=== PATIENT | male | born 1950 | race Caucasian/White ===

== ENCOUNTER → 2017-04-27 | Outpatient (CLI) | payer BC ==
--- NOTE | 2017-04-27 08:04 | US ---
EXAMINATION TYPE: US duplex aorta DATE OF EXAM: 04/27/2017 COMPARISON: US CLINICAL HISTORY: I71.4 Abdominal aortic aneurysm, without rupture. Pt has no complaints at this time , possible AAA EXAM MEASUREMENTS: Abdominal Aorta: Proximal: 2.6 x 2.4 cm Mid: 2.1 x 2.2 cm Distal: 1.9 x 2.0 cm Bifurcation: ALEXANDER: 1.3 x 1.2 cm HUGO: 1.3 x 1.0 cm No evidence of AAA, proximal portion at upper limits of normal for size IMPRESSION: 1. No abdominal aortic aneurysm.
== END | disposition home or self-care (01) ==
LOC: RADUSWWP 07:38
PROVIDERS: ATTEND Internal Medicine
DX: I71.4 Abdominal aortic aneurysm, without rupture (principal)
CPT/HCPCS: 93979

== ENCOUNTER 2018-04-12 10:16 | Day surgery (SDC) | payer MEDICARE, BC ==
[2018-04-09 17:25] VITALS: BMI 28.8
[~2018-04-12 10:16] MED LIST: LACTATED RINGERS 1,000 ML IV SCH; LIDOCAINE 1% 20 ML VIAL (10MG/ML) FOR IV START INTRADERMA PRN
[2018-04-12 11:14] VITALS: TEMP 97.9
[2018-04-12] MEDS ORDERED: LACTATED RINGERS 1,000 ML IV ONE (11:14)
[2018-04-12] MEDS ORDERED: PROPOFOL 10 MG/ML 20 ML VIAL IV ONE (13:07)
--- NOTE | 2018-04-12 13:25 | P.PCN ---
Date of Procedure: 04/12/18 Procedure(s) Performed: BRIEF HISTORY: Patient is a 67-year-old pleasant male, scheduled for an elective colonoscopy as a part of evaluation of prior history of colon polyps. Last colonoscopy was 5 years ago. PROCEDURE PERFORMED: Colonoscopy with snare polypectomy. PREOPERATIVE DIAGNOSIS: History of colon polyps. IV sedation per Anesthesia. PROCEDURE: After informed consent was obtained, the patient, was brought into the endoscopy unit. IV sedation was administered by Anesthesia under continuous monitoring. Digital rectal examination was normal. Initially the Olympus CF- 160 flexible video colonoscope was then inserted in the rectum, gradually advanced into the cecum without any difficulty. Careful examination was performed as the scope was gradually being withdrawn. Ileocecal valve and the appendiceal orifice were visualized and appeared normal. Prep was excellent. Mucosa of the cecum, appeared normal. In the ascending colon there was a 7-8 mm broad-based polyp removed by snare polypectomy. Rest of the ascending colon , transverse colon, descending colon, sigmoid colon, and rectum appeared normal. Left Sided Diverticulosis Seen. Retroflexion was performed in the rectum and no lesions were seen. The patient tolerated the procedure well. IMPRESSION: 7-8 mm ascending colon polyp status post polypectomy Scattered sigmoid diverticulosis RECOMMENDATIONS: Findings of this examination were discussed with the patient as well as his family. He was advised to follow with the biopsy results. If the biopsy shows a tubular adenoma he can have a repeat colonoscopy in 5 years..
[2018-04-12 13:49] VITALS: BP 141/77; PULSE 56; RESP 18
== END 2018-04-12 13:55 | disposition home or self-care (01) ==
LOC: ORWHC2ENDO 10:16
PROVIDERS: ATTEND Internal Medicine Gastroenterology
DX: Z12.11 Encounter for screening for malignant neoplasm of colon (principal); D12.2 Benign neoplasm of ascending colon; K57.30 Diverticulosis of large intestine without perforation or abscess without bleeding; Z86.010 Personal history of colon polyps; E78.5 Hyperlipidemia, unspecified; Z79.82 Long term (current) use of aspirin; Z79.899 Other long term (current) drug therapy; Z88.2 Allergy status to sulfonamides
CPT/HCPCS: 88305; 45385; J2704

== ENCOUNTER → 2019-08-26 | Outpatient (CLI) | payer MEDICARE, BC ==
--- NOTE | 2019-08-26 16:03 | US ---
EXAMINATION TYPE: US carotid duplex BILAT DATE OF EXAM: 08/26/2019 COMPARISON: NONE CLINICAL HISTORY: I65.23 Carotid stenosis. EXAM MEASUREMENTS: RIGHT: Peak Systolic Velocity (PSV) cm/sec ----- Right CCA: 78.5 ----- Right ICA: 81.6 ----- Right ECA: 116 ICA/CCA ratio: 1.03 RIGHT: End Diastole cm/sec ----- Right CCA: 20.6 ----- Right ICA: 29.5 ----- Right ECA: 13.4 LEFT: Peak Systolic Velocity (PSV) cm/sec ----- Left CCA: 77.8 ----- Left ICA: 99.4 ----- Left ECA: 108.0 ICA/CCA ratio: 1.28 LEFT: End Diastole cm/sec ----- Left CCA: 18.7 ----- Left ICA: 55.2 ----- Left ECA: 15.8 VERTEBRALS (direction of flow): Right Vertebral: Antegrade Left Vertebral: Antegrade Rhythm: Arrhythmia Mild plaque with no significant velocity increases. IMPRESSION: 1. Mild degree of grayscale atheromatous plaquing with no sonographically evident hemodynamically sig nificant stenosis within either visualized carotid arterial system. 2. Incidentally noted cardiac arrhythmia. Correlate with EKG. Criteria for Assigning % of Stenosis / Diameter reduction (Estimation based on the indirect measurements of the internal carotid artery velocities (ICA PSV). 1. Normal (no stenosis)=ICA PSV < 125 cm/s: ratio < 2.0: ICA EDV<40 cm/s. 2. Less than 50% stenosis=ICA PSV < 125 cm/s: ratio < 2.0: ICA EDV<40 cm/s. 3. 50 to 69% stenosis=ICA PSV of 125 to 230 cm/s: ration 2.0 ? 4.0: ICA EDV 40-100 cm/s. 4. Greater than 70% stenosis to near occlusion= ICA PSV > 230 cm/s: ratio > 4.0: ICA EDV > 100 cm/s. 5. Near occlusion= ICA PSV velocities may be low or undetectable: variable ratio and ICA EDV. 6. Total occlusion=unable to detect flow.
== END ==
LOC: RADUSWWP 15:19
PROVIDERS: ATTEND Internal Medicine
DX: I65.23 Occlusion and stenosis of bilateral carotid arteries (principal)
CPT/HCPCS: 93880

== ENCOUNTER → 2019-11-20 | Outpatient (CLI) | payer MEDICARE, BC ==
--- NOTE | 2019-11-20 09:27 | US ---
EXAMINATION TYPE: US abdomen complete DATE OF EXAM: 11/20/2019 COMPARISON: NONE CLINICAL HISTORY: D69.1 Qualitative platelet defects. Platelet defects. EXAM MEASUREMENTS: Liver Length: 13.7 cm Gallbladder Wall: .2 cm CBD: .3 cm Spleen: 9.3 cm Right Kidney: 10.9 x 5.5 x 4.7 cm Left Kidney: 12.3 x 5.2 x 4.3 cm Exam limitations due to body habitus and bowel gas. Pancreas: Obscured by bowel gas Liver: There is increased echogenicity of the hepatic parenchyma with diminished visualization of th e portal triads most commonly relating to hepatic steatosis and limiting evaluation for underlying he patic masses. Gallbladder: wnl Evidence for sonographic Anne's sign: No CBD: wnl Spleen: wnl Right Kidney: appears wnl Left Kidney: Mild hydronephrosis. Upper IVC: wnl Abd Aorta: wnl The intrahepatic portion of the IVC and proximal abdominal aorta are within normal limits. There is no evidence of cholelithiasis. Common bile duct is unremarkable. The visualized portions of the gomez creas are homogenous. The spleen is unremarkable. No renal lesions are seen. IMPRESSION: Exam is somewhat limited secondary to patient body habitus. 1. Mild left-sided hydronephrosis. CT urogram could assess for an obstructive etiology. 2. Sonographic findings most commonly related to hepatic steatosis. Correlate with liver function cici ts.
== END | disposition home or self-care (01) ==
LOC: RADUSWWP 08:16
PROVIDERS: ATTEND Internal Medicine
DX: N13.30 Unspecified hydronephrosis (principal); K76.0 Fatty (change of) liver, not elsewhere classified
CPT/HCPCS: 76700

== ENCOUNTER → 2019-11-27 | Outpatient (CLI) | payer MEDICARE, BC ==
[2019-11-27 14:50] LABS: African American GFR (CKD) >90 (>60 ml/min/1.73 sqM); Blood Urea Nitrogen 20 mg/dL (9-20); Non-African American GFR(CKD) 85 (>60 ml/min/1.73 sqM)
--- NOTE | 2019-11-28 11:45 | CT ---
EXAMINATION TYPE: CT urogram wo/w con DATE OF EXAM: 11/27/2019 COMPARISON: Correlation ultrasound 11/20/2019 HISTORY: 69-year-old male ABNORMAL US TECHNIQUE: Contiguous axial scanning of the abdomen and pelvis performed without and with IV Contrast , patient injected with 100 mL of Isovue 300. Delayed images through the kidneys and bladder were obt ained. Coronal/sagittal reconstructions performed. 3-D reconstructions generated on a dedicated iM[employer] workstation. CT DLP: 2021.2 mGycm Automated exposure control for dose reduction was used. FINDINGS: The heart is normal size without pericardial effusion. Some strandy atelectasis lower lungs. No pleur al effusion. No significant fatty infiltration of the liver given normal density and noncontrast series. Appearanc e on ultrasound seems to have been technical artifact. No focal liver lesion or biliary ductal dilata tion. Portal venous system is patent. Gallbladder, right adrenal gland, spleen and bilateral splenule, and pancreas appear within normal li mits. Mild thickening of the left adrenal gland without discrete nodularity. Kidneys show no nephrolithiasis. No ureteric dilatation. Bilateral parapelvic cysts are present, oliver uring up to 1.3 cm on the right and 2.3 cm on the left. No suspicious renal lesion. No abnormal filling defect within the renal collecting systems or along t he course of the ureters. No dilated small bowel, free fluid, or free air. Retroaortic left renal vein. Scattered nonenlarged and borderline size mesenteric lymph nodes measure up to 7 mm, likely reactive/ post inflammatory. Normal appendix. Mild stool burden. No pericolonic inflammatory change. Bladder is markedly urine distended measuring up to 16.9 cm. Prostate gland is bulky and enlarged oneil suring 5.5 cm wide by 5.3 cm craniocaudal with a bulging at the bladder base. The posterior third of the bladder is opacified on the delayed scan and shows no abnormal mural based filling defect. No abnormal fluid collection in the pelvis or pelvic lymphadenopathy. There seems to be varicoceles a long the inguinal regions and left hemiscrotum. Bones: Mild degenerative changes at the hips. Degenerative changes right SI joint. Moderate degenerat rena disc disease mid to lower lumbar spine with facet arthropathy. IMPRESSION: 1. NO HYDRONEPHROSIS. THERE ARE PARAPELVIC CYSTS IN BOTH KIDNEYS AND THIS FINDING ACCOUNTS FOR THE AP PEARANCE OF HYDRONEPHROSIS ON ULTRASOUND. 2. NO NEPHROLITHIASIS OR ABNORMAL FILLING DEFECT WITHIN THE URETERS OR RENAL COLLECTING SYSTEMS. 3. PROSTATOMEGALY AT 5.5 CM AND MARKED URINARY BLADDER DISTENTION UP TO 16.9 CM. CORRELATE FOR POSSIB LE BPH. PSA ASSESSMENT ALSO RECOMMENDED. 4. SUSPECT SCROTAL VARICOCELES.
== END | disposition home or self-care (01) ==
LOC: RADCTMAIN 14:07
PROVIDERS: ATTEND Internal Medicine
DX: N40.0 Benign prostatic hyperplasia without lower urinary tract symptoms (principal); N32.89 Other specified disorders of bladder; Q61.02 Congenital multiple renal cysts; N13.30 Unspecified hydronephrosis
CPT/HCPCS: 82565; 84520; 74178; 36415; 74400; Q9967

== ENCOUNTER → 2020-04-15 | Outpatient (CLI) | payer MEDICARE, BC ==
[2020-04-15 09:14] LABS: Basophils % (A) 0 %; Eosinophils % (A) 4 %; HCT 47.3 % (39.0-53.0); HGB 16.1 gm/dL (13.0-17.5); Lymphocytes % (A) 23 %; MCH 31.7 pg (25.0-35.0); MCHC 34.1 g/dL (31.0-37.0); MCV 93.2 fL (80.0-100.0); Monocytes % (A) 6 %; Neutrophils % (A) 65 %; Platelet Count 156 k/uL (150-450); RBC 5.07 m/uL (4.30-5.90); RDW 12.7 % (11.5-15.5)
[2020-04-15 09:15] LABS: Eosinophils # (A) 0.2 k/uL (0-0.7); Lymphocytes # (A) 1.4 k/uL (1.0-4.8); Monocytes # (A) 0.4 k/uL (0-1.0); Neutrophils # (A) 3.9 k/uL (1.3-7.7)
[2020-04-15 18:08] LABS: African American GFR (CKD) 99.9 (60.0-200.0); Albumin 3.9 g/dL (3.80-4.90); Albumin/Globulin Ratio 2.05 (1.60-3.17); Anion Gap 3.1 mmol/L (4.00-12.00); BUN/Creat Ratio 27.78 Ratio (12.00-20.00); Calcium 9.2 mg/dL (8.7-10.3); Carbon Dioxide 29.9 mmol/L (21.6-31.8); Chol/HDL Ratio 2.79; Globulin 1.9 g/dL (1.6-3.3); LDL Cholesterol,Calculated 67.6 mg/dL (0.0-131.0); Non-African American GFR(CKD) 86.2 (60.0-200.0); Potassium 4.5 mmol/L (3.5-5.5); Total Bilirubin 0.7 mg/dL (0.3-1.2); Total Protein 5.8 g/dL (6.2-8.2); VLDL Calculation 18.4 mg/dL (5.00-40.00)
== END | disposition home or self-care (01) ==
LOC: LABWHC1 07:53
PROVIDERS: ATTEND Internal Medicine
DX: Z00.00 Encounter for general adult medical examination without abnormal findings (principal); N40.0 Benign prostatic hyperplasia without lower urinary tract symptoms; E78.2 Mixed hyperlipidemia
CPT/HCPCS: 36415; 80053; 80061; 84153; 84443; 85025

== ENCOUNTER → 2022-10-20 | Outpatient (CLI) | payer MEDICARE, BC ==
--- NOTE | 2022-10-20 12:06 | NM ---
EXAMINATION TYPE: NM stress cardiolite complete DATE OF EXAM: 10/20/2022 COMPARISON: NONE HISTORY: TECHNIQUE: After the intravenous administration of 9.2 mCi Tc 99m Sestamibi - Rest images obtained 4 5 minutes post injection. The patient exercised using a LUIZA protocol and 1 minute prior to peak e xercise was injected with 25.3 mCi Tc 99m Sestamibi - Stress images obtained 10 minutes post injectio n. FINDINGS: Targeted heart rate was achieved during performance of the study. Review of stress and rest SPECT steffanie ges demonstrates no distinct perfusion abnormality. Gated analysis shows normal wall motion with an estimated left ventricular ejection fraction of 62 %. IMPRESSION: No scintigraphic evidence for reversible ischemia
--- NOTE | 2022-10-20 12:34 | CA ---
Exercise Stress Test Report Name: Rajendra Moss Exam Date: 10/20/2022 10:36 Exam Location: [place] [facility] Ht (in): 72 Wt (lb): 219 BSA: 2.21 Ordering Phys: Bennie Jesus MD Referring Phys: MEL, Technologist: Jacinto Villela Age: 71 Gender: M : 1950 Procedure CPT: Indications: I20.8 Angina ICD-10 Codes: Patient History: HTN, ELEVATED CHOLESTEROL LEVELS, FAMILY HX OF HEART DISEASE Medications: SIMVASTATIN,,,,,, LOSARTAN,,,,,, FINASTERIDE,,,,,, ASA,,,,, Meds past 24 hrs: Pretest Chest Pain: STRESS TEST Jer Protocol Exercise Duration (min:sec): 06:[address] Depressions (mm): Angina Score: Emerson Score: Resting HR (bpm): 68 Peak HR (bpm): 144 Resting BP (mmHg): 146 / 76 Peak BP (mmHg): 191 / 69 MPHR: 148 Target HR: 126 % MPHR: 97 METS: 7.9 Total Dose: Peak Dose: Atropine: Double Product: 28190 BP Response: Stress Termination: MAX EXERTION/TARGET HR Stress Symptoms: NO SYMPTOMS Stress Summary: ECG ANALYSIS Resting ECG: Stress ECG: CONCLUSIONS Baseline heart rate 89 beats a minute, Baseline blood pressure 158/90 mmHg Patient exercised on Jer protocol for 6 minutes 30 seconds Baseline. EKG showed normal sinus rhythm with normal ST segments No ECG evidence for ischemia No arrhythmias average exercise capacity Dr. Adán Macario MD (Electronically Signed) Final Date: 20 October 2022 12:34
== END | disposition home or self-care (01) ==
LOC: RADNMMAIN 08:56
PROVIDERS: ATTEND Internal Medicine
DX: I20.8 Other forms of angina pectoris (principal)
CPT/HCPCS: 93017; 78452; A9500

== ENCOUNTER 2024-10-30 12:02 | Day surgery (SDC) | payer MEDICARE, BC ==
[2024-10-30] MEDS ORDERED: LIDOCAINE 1% (10MG/ML) FOR IV START INTRADERMA PRN (12:15)
[2024-10-30] MEDS ORDERED: LACTATED RINGERS 1,000 ML IV SCH (12:15)
[2024-10-30] MEDS: IV FLUID CONTINUATION 1,000 ML IV ONE (12:45)
[2024-10-30 13:08] VITALS: RESP 16; TEMP 97.8
[2024-10-30] MEDS ORDERED: PROPOFOL 10 MG/ML 20 ML VIAL IV ONE (13:33)
[2024-10-30] MEDS ORDERED: LIDOCAINE 1% INJ 10MG/ML (20 ML MDV) ONE (13:33)
[2024-10-30 14:06] VITALS: BP 99/63; PULSE 62
--- NOTE | 2024-10-30 16:25 | P.OP ---
Date of Procedure: 10/30/24 Preoperative Diagnosis: Screening Colonoscopy Postoperative Diagnosis: Normal Colon Procedure(s) Performed: Colonoscopy Anesthesia: other (Sedation) Surgeon: Rafa Hooks Pathology: none sent Condition: stable Disposition: PACU Description of Procedure: After informed consent was obtained, the patient was placed in the left lateral position and the above medications were titrated with adequate sedation. Monitoring was provided throughout the entire procedure. Digital rectal exam was performed revealing normal sphincter tone and no external hemorrhoids. The colonoscope was inserted into rectum and advanced under direct visualization, without difficulty, to the cecum, where the cecal strap, appendiceal orifice, and the ileocecal valve were identified. The quality of the preparation was good. The colonoscope was then withdrawn while carefully examining the mucosa. The colonic mucosa appeared normal with normal vascularity and haustral markings. No masses, polyps, AVM/s or diverticula were seen. On retroflexed view in the rectum, there are small internal hemorrhoids. The endoscope was removed and the procedure terminated. The patient tolerated the procedure well without complications. The patient will need repeat colonoscopy in 10 years
== END 2024-10-30 14:28 | disposition home or self-care (01) ==
LOC: ORWHC2ENDO 12:02
PROVIDERS: ATTEND Surgery
DX: Z12.11 Encounter for screening for malignant neoplasm of colon (principal); I10 Essential (primary) hypertension; E78.5 Hyperlipidemia, unspecified; N40.0 Benign prostatic hyperplasia without lower urinary tract symptoms; F17.200 Nicotine dependence, unspecified, uncomplicated; Z88.2 Allergy status to sulfonamides; Z79.899 Other long term (current) drug therapy
CPT/HCPCS: J2003; J2704; G0121

== ENCOUNTER → 2025-04-27 | Outpatient (CLI) | payer MEDICARE, BC ==
--- NOTE | 2025-04-27 08:18 | US ---
EXAMINATION TYPE: US carotid duplex BILAT DATE OF EXAM: 04/27/2025 COMPARISON: 08/26/2019 CLINICAL INDICATION: Male, 74 years old with history of I65.23 Carotid stenosis; HTN; Patient denies any other signs, symptoms, or relevant history Additional History: .... TECHNIQUE: Grayscale, color Doppler and spectral Doppler evaluation of the bilateral carotid systems and vertebral arteries. Indirect Doppler criteria was utilized. FINDINGS: EXAM MEASUREMENTS: RIGHT: Peak Systolic Velocity (PSV) cm/sec ----- Right CCA: 73 ----- Right ICA: 85 ----- Right ECA: 123 ICA/CCA ratio: 1.2 RIGHT: End Diastole cm/sec ----- Right CCA: 17 ----- Right ICA: 25 ----- Right ECA: 15 LEFT: Peak Systolic Velocity (PSV) cm/sec ----- Left CCA: 80 ----- Left ICA: 99 ----- Left ECA: 122 ICA/CCA ratio: 1.2 LEFT: End Diastole cm/sec ----- Left CCA: 18 ----- Left ICA: 36 ----- Left ECA: 16 VERTEBRALS (direction of flow): Right Vertebral: Antegrade Left Vertebral: Antegrade Rhythm: Normal TRIMMING INSPECTOR NOTES: Calcified plaque seen right CCA extending into ICA, no elevated velocities seen, a nd intimal thickening noted at the left CCA bulb. Color Doppler imaging shows patency with blood flow throughout the carotid artery. Spectral waveforms are within normal limits. IMPRESSION: 1. Atheromatous plaquing without significant flow-limiting stenosis based on velocities. Criteria for Assigning % of Stenosis / Diameter reduction (Estimation based on the indirect measurements of the internal carotid artery velocities (ICA PSV). 1. Normal (no stenosis)=ICA PSV < 180 cm/s: ratio < 2.0: ICA EDV<40 cm/s. 2. Less than 50% stenosis=ICA PSV < 180 cm/s: ratio < 2.0: ICA EDV<40 cm/s. 3. 50 to 69% stenosis=ICA PSV of 180 to 230 cm/s: ration 2.0 ? 4.0: ICA EDV 40-100 cm/s. PSV 125-180 cm/sec and ICA/CCA PSV Ratio ? 2.0 is also consistent with 50-69% stenosis 4. Greater than 70% stenosis to near occlusion= ICA PSV > 230 cm/s: ratio > 4.0: ICA EDV > 100 cm/s. 5. Near occlusion= ICA PSV velocities may be low or undetectable: variable ratio and ICA EDV. 6. Total occlusion=unable to detect flow. [facility], , 04/27/2025 8:16 AM
--- NOTE | 2025-04-27 10:40 | CA ---
Transthoracic Echo Report Name: Rajendra Moss Age: 74 Gender: M : 1950 Exam Date: 04/27/2025 08:32 Exam Location: [place] [facility] Ht (in): 72 Wt (lb): 219 Ordering Physician: Bennie Jesus MD Attending/Referring Phys: Manager Program Management Jerson Rivers RDCS Procedure CPT: Indications: I25.10 Athersclerosis, I65.23 Carotid stenosis Cardiac Hx: Technical Quality: Good Contrast 1: Total Dose (mL): Contrast 2: Total Dose (mL): MEASUREMENTS (Male / Female) Normal Values 2D ECHO LV Diastolic Diameter PLAX 5.1 cm 4.2 - 5.9 / 3.9 - 5.3 cm LV Systolic Diameter PLAX 3.6 cm IVS Diastolic Thickness 0.9 cm 0.6 - 1.0 / 0.6 - 0.9 cm LVPW Diastolic Thickness 1.1 cm 0.6 - 1.0 / 0.6 - 0.9 cm LV Relative Wall Thickness 0.4 RV Internal Dim ED PLAX 3.4 cm LVOT Diameter 2.0 cm LA Systolic Diameter LX 4.3 cm 3.0 - 4.0 / 2.7 - 3.8 cm LV Diastolic Volume MOD BP 99.0 cm??? 67 - 155 / 56 - 104 cm??? LV Systolic Volume MOD BP 43.8 cm??? 22 - 58 / 19 - 49 cm??? LV Ejection Fraction MOD BP 55.7 % >= 55 % LV Cardiac Index MOD BP 1288.5 cm???/min???m??? LV Diastolic Volume MOD 4C 105.6 cm??? LV Systolic Volume MOD 4C 44.3 cm??? LV Ejection Fraction MOD 4C 58.1 % LV Cardiac Index MOD 4C 1433.4 cm???/min???m??? LV Diastolic Length 4C 8.2 cm LV Systolic Length 4C 6.9 cm LV Diastolic Volume MOD 2C 90.5 cm??? LV Systolic Volume MOD 2C 43.7 cm??? LV Ejection Fraction MOD 2C 51.7 % LV Cardiac Index MOD 2C 1092.7 cm???/min???m??? LV Diastolic Length 2C 8.0 cm LV Systolic Length 2C 7.0 cm LA Volume 51.0 cm??? 18 - 58 / 22 - 52 cm??? LA Volume Index 22.5 cm???/m??? 16 - 28 cm???/m??? DOPPLER MV Area PHT 2.5 cm??? Mitral E Point Velocity 62.4 cm/s Mitral A Point Velocity 81.5 cm/s Mitral E to A Ratio 0.8 MV Deceleration Time 300.9 ms FINDINGS Left Ventricle Left ventricular ejection fraction is estimated at 55-60%. Normal left ventricular systolic function with no obvious regional wall motion abnormalities. Left ventricular cavity size normal. Left ventricular wall thickness normal. Right Ventricle Normal right ventricular size and function. Unable to estimate the right ventricular systolic pressure. Right Atrium Normal right atrial size. Left Atrium Normal left atrial size. Mitral Valve Mitral valve thickened. No mitral stenosis. Trace mitral regurgitation. Aortic Valve Trileaflet aortic valve. No aortic valve stenosis or regurgitation. Tricuspid Valve Structurally normal tricuspid valve. No tricuspid stenosis. Trace tricuspid regurgitation. Pulmonic Valve Structurally normal pulmonic valve. No pulmonic stenosis. Trace pulmonic regurgitation. Pericardium No pericardial effusion. Aorta Normal size aortic root and proximal ascending aorta. CONCLUSIONS Left ventricular ejection fraction 55 to 60% Trace mitral regurgitation Trace tricuspid regurgitation No pericardial effusion Previewed by: Dr. Angel Thorpe DO (Electronically Signed) Final Date: 27 April 2025 10:39
--- NOTE | 2025-04-27 11:43 | NM ---
EXAMINATION TYPE: NM stress cardiolite complete DATE OF EXAM: 04/27/2025 COMPARISON: NONE CLINICAL INDICATION: Male, 74 years old with history of I25.10 Athersclerosis, I65.23 Carotid stenosi s, TECHNIQUE: After the intravenous administration of 9.8 mCi Tc 99m Sestamibi - Cardiolite resting SPE CT images acquired 45 minutes post injection. At peak stress 24.7 mCi Tc 99m Sestamibi - Stress images obtained 15 minutes post injection The patient was stressed with 0.4mg Lexiscan. FINDINGS: No fixed defects are evident. No reversible stress defects on Spect images. Wall motion is normal. Ejection fraction is calculated to be 63 %. IMPRESSION: 1. No scintigraphic evidence for reversible ischemia. [facility], , 04/27/2025 11:40 AM
--- NOTE | 2025-04-27 13:13 | CA ---
Exercise Stress Test Report Name: Rajendra Moss Exam Date: 04/27/2025 09:25 Exam Location: [place] Stress Ht (in): 72 Wt (lb): 219 BSA: 2.21 Ordering Phys: Bennie Jesus MD Referring Phys: MEL Technologist: ANTHONY CISNEROS Age: 74 Gender: M : 1950 Procedure CPT: Indications: I25.10 Athersclerosis, I65.23 Carotid stenosis ICD-10 Codes: Patient History: HYPERTENSION, HYPERCHOLESTEROLEMIA Medications: LOSARTAN, SIMVASTATIN, FINASTERIDE, ASA 81 mg, MULTIVITAMIN Meds past 24 hrs: Pretest Chest Pain: STRESS TEST Jer Protocol Exercise Duration (min:sec): 06:[address] Depressions (mm): Angina Score: Emerson Score: Resting HR (bpm): 74 Peak HR (bpm): 137 Resting BP (mmHg): 143 / 94 Peak BP (mmHg): 201 / 61 MPHR: 145 Target HR: 123 % MPHR: 94 METS: 8.3 Total Dose: Peak Dose: Atropine: Double Product: 31929 BP Response: Stress Termination: TARGET HR REACHED/MAX EXERTION Stress Symptoms: NO SYMPTOMS Stress Summary: ECG ANALYSIS Resting ECG: Stress ECG: CONCLUSIONS Patient underwent exercise stress Cardiolite with a Jer protocol treadmill stress test. Patient exercised into Stage 2 for a total of 6 minutes and 40 seconds reaching a total of 8.3 METS. Patient's maximum heart rate was 137 which represented 94% age-predicted maximum heart rate. Stress EKG findings: At baseline patient's EKG showed normal sinus rhythm, normal axis, no significant ST or T wave abnormality. At peak exercise, EKG showed minimal nondiagnostic 0.[address] depressions in the inferior. Conclusions: 1. Normal EKG response to exercise without evidence of inducible ischemia. 2. Fair exercise capacity. 3. Nuclear portion to be reported separately Dr. Angel Thorpe DO (Electronically Signed) Final Date: 27 April 2025 13:13
== END | disposition home or self-care (01) ==
LOC: RADUSWWP 07:23
PROVIDERS: ATTEND Internal Medicine
DX: I65.23 Occlusion and stenosis of bilateral carotid arteries (principal); E78.00 Pure hypercholesterolemia, unspecified; I10 Essential (primary) hypertension; I08.1 Rheumatic disorders of both mitral and tricuspid valves
CPT/HCPCS: 93017; 93306; 93880; 78452; A9500